=== PATIENT | male | born 1990 | race Caucasian/White ===

== ENCOUNTER 2016-10-06 11:25 | Emergency (ER) | payer MEDICAID ==
[~2016-10-06] VITALS: Ht 170.2 cm; Wt 63.5 kg
--- NOTE | 2016-10-06 11:35 | NUR ---
PATIENT BIB [facility] D/T WITNESSED SEIZURE AT HOME. PATIENT A/OX 3, BUT LETHARGIC. FAMILY AT BEDSIDE. VITALS STABLE, SAFETY AND COMFORT MEASURES IN PLACE. AWAITING MD ORDERS.
[2016-10-06] MEDS ORDERED: IV NS 0.9% 1,000 ML ONE (11:48)
[2016-10-06] MEDS ORDERED: ONDANSETRON HCL/PF 4 MG/2 ML VIAL ONE (11:48)
[2016-10-06] MEDS ORDERED: IV SET PRIMARY 1 EA INFUS.SET MC ONE (11:48)
[2016-10-06] MEDS ORDERED: LORAZEPAM INJ 2 MG/ML VIAL ONE (11:49)
[2016-10-06 11:54] LABS: BASOPHILS # (AUTO) 0.1 /CMM (0.0-0.2); BASOPHILS % (AUTO) 1.1 % (0.0-2.0); EOSINOPHILS % (AUTO) 0.4 % (0.0-6.0); HEMATOCRIT 46 % (39-51); HEMOGLOBIN 15.2 g/dL (13.5-17.5); LYMPHOCYTES # (AUTO) 1.6 /CMM (0.8-4.8); LYMPHOCYTES % (AUTO) 16.9 % (20.0-44.0); MEAN CORPUSCULAR HEMOGLOBIN 29 PG (26.0-33.0); MEAN CORPUSCULAR HGB CONC 33 g/dl (31.0-36.0); MEAN CORPUSCULAR VOLUME 88 fL (80-96); MONOCYTES # (AUTO) 0.5 /CMM (0.1-1.30); MONOCYTES % (AUTO) 5.1 % (2.0-12.0); NEUTROPHILS # (AUTO) 7.4 /CMM (1.8-8.9); NEUTROPHILS % (AUTO) 76.5 % (43.0-81.0); PLATELET COUNT (AUTO) 338 /CMM (150-450); RDW COEFFICIENT OF VARIATION 11.8 (11.5-15.0); RED BLOOD CELL COUNT(AUTO) 5.25 MIL/uL (4.5-6.0); WHITE BLOOD COUNT (AUTO) 9.6 K/uL (4.3-11.0)
[2016-10-06] MEDS ORDERED: IV SET PRIMARY PUMP SET 1 EA INFUS.SET MC ONE (11:57)
[2016-10-06 11:58] LABS: CALCIUM, SERUM 8.7 mg/dL (8.5-10.1); CARBON DIOXIDE 29 mmol/L (21-32); CHLORIDE 102 mmol/L (98-107); GLUCOSE 124 mg/dL (74-106); POTASSIUM 4.1 mmol/L (3.5-5.1); SODIUM SERUM 137 mmol/L (136-145); UREA NITROGEN, BLOOD 15 mg/dL (7-18)
[2016-10-06] MEDS: IV NS 0.9% 1,000 ML BAG IV ONE (11:58)
[2016-10-06] MEDS: LORAZEPAM INJ 2 MG/ML VIAL IV ONE (11:58)
[2016-10-06] MEDS: ONDANSETRON HCL/PF - ER 4 MG/2 ML VIAL IV ONE (11:59)
[2016-10-06 12:04] LABS: ALANINE AMINOTRANSFERASE 17 U/L (12-78); ALKALINE PHOSPHATASE 71 U/L (46-116); ASPARTATE AMINOTRANSFERASE 15 U/L (15-37); BILIRUBIN,DIRECT 0.1 mg/dL (0.0-0.2); BILIRUBIN,TOTAL 0.4 mg/dL (0.2-1.0); INR 0.97 (0.87-1.13); PROTHROMBIN TIME 10.1 SECS (9.5-12.7); TOTAL PROTEIN, SERUM 7.2 g/dL (6.4-8.2)
[2016-10-06] MEDS: LEVETIRACETAM (500MG) 1,000 MG in IV NS 0.9% 100 ML IV SCH (12:04)
--- NOTE | 2016-10-06 12:05 | NUR ---
PATIENT TAKEN TO CT SCAN VIA STRETCHER. VITALS STABLE, WILL CONTINUE TO MONITOR UPON RETURN.
[2016-10-06 12:06] LABS: TROPONIN I < 0.017 ng/mL (0.00-0.056)
--- NOTE | 2016-10-06 12:19 | NUR ---
PATIENT RETURNED FROM CT. REMAINS STABLE.
--- NOTE | 2016-10-06 13:15 | NUR ---
CALLED KELSE[facility] ROBERTS LEFT MSG
[2016-10-06 13:56] VITALS: BP 124/77
--- NOTE | 2016-10-06 14:23 | NUR ---
PATIENT CLEARED FOR DISCHARGE PER MD. VITALS REMAIN STABLE. NO SEIZURE ACTIVITY. PRESCRIPTION GIVEN TO PATIENT. DISCHARGE TEACHING PROVIDED TO PATIENT AND FAMILY. PATIENT VERBALIZES UNDERSTANDING. PATIENT DISCHARGED HOME VIA PRIVATE CAR.
== END 2016-10-06 13:57 | disposition home or self-care (01) ==
LOC: ER 11:26
DX: G40.909 Epilepsy, unspecified, not intractable, without status epilepticus (principal); R51 Headache
CPT/HCPCS: 36415; 70450-TC; 71010-TC; 80048-TC; 80076-TC; 82962-TC; 84484-TC; 85025-TC; 85730-TC; A4606; G0480; J1953; J2060; J2405; J7030; Z7610